=== PATIENT | male | born 1955 | race Caucasian/White ===

== ENCOUNTER 2019-09-18 08:47 | Outpatient (CLI) | payer MEDICARE, SELFPAY ==
--- NOTE | 2019-09-18 | XR_ITS ---
WS: [id number] CHEST 2 VIEWS HISTORY: COUGH, CHEST CONGESTION, SOB COMPARISON: None available. Lungs: Lung volumes are decreased. Scattered bilateral granulomata. There is also mild pulmonary josette a. No pneumonia. No pleural effusion. Cardiac size: Normal. Mediastinum/Aorta: Mild atherosclerosis aorta. Bones: Normal. XR/XR chest 2V* [id number] IMPRESSION: 1. Mild pulmonary venous congestion with no pneumonia. 2. Prior granulomatous disease.
== END 2019-09-18 08:48 | disposition home or self-care (01) ==
PROVIDERS: Family Provider Pediatrics Pediatric Allergy/Immunology; PCP Pediatrics Pediatric Allergy/Immunology; Visit Provider Nurse Practitioner
DX: Z76.89 Persons encountering health services in other specified circumstances (principal)

== ENCOUNTER → 2019-11-28 10:14 | Outpatient (BNVA) | payer MEDICARE, SELFPAY | PROVIDERS: Family Provider Pediatrics Pediatric Allergy/Immunology; PCP Pediatrics Pediatric Allergy/Immunology; Visit Provider Registered Nurse | DX: I10 Essential (primary) hypertension (principal); E78.5 Hyperlipidemia, unspecified; K21.9 Gastro-esophageal reflux disease without esophagitis; N40.0 Benign prostatic hyperplasia without lower urinary tract symptoms | CPT/HCPCS: 80053; 80061; 84153; 85025 ==

== ENCOUNTER → 2020-12-16 11:25 | Outpatient (BNVA) | payer MEDICARE, OTHER, SELFPAY | PROVIDERS: Family Provider Pediatrics Pediatric Allergy/Immunology; PCP Pediatrics Pediatric Allergy/Immunology; Visit Provider Registered Nurse | DX: I10 Essential (primary) hypertension (principal); K21.9 Gastro-esophageal reflux disease without esophagitis; E78.5 Hyperlipidemia, unspecified; E66.01 Morbid (severe) obesity due to excess calories | CPT/HCPCS: 80053; 80061; 85025 ==

== ENCOUNTER → 2021-10-06 09:57 | Outpatient (BNVA) | payer MEDICARE, OTHER, SELFPAY | PROVIDERS: Family Provider Pediatrics Pediatric Allergy/Immunology; PCP Registered Nurse; Visit Provider Registered Nurse | DX: I10 Essential (primary) hypertension (principal) | CPT/HCPCS: 80053; 80061; 85025; 88304 ==

== ENCOUNTER → 2022-11-13 15:03 | Outpatient (BNVA) | payer MEDICARE, OTHER, SELFPAY | PROVIDERS: Family Provider Pediatrics Pediatric Allergy/Immunology; PCP Registered Nurse; Visit Provider Registered Nurse | DX: E66.01 Morbid (severe) obesity due to excess calories (principal); I10 Essential (primary) hypertension; N40.0 Benign prostatic hyperplasia without lower urinary tract symptoms; G62.9 Polyneuropathy, unspecified; R73.9 Hyperglycemia, unspecified | CPT/HCPCS: 80053; 80061; 82607; 83036; 85025 ==

== ENCOUNTER 2022-11-23 06:00 | Outpatient (RCR) | payer MEDICARE, OTHER, SELFPAY | END 2022-11-26 23:59 | disposition home or self-care (01) | LOC: WPT 06:00 | PROVIDERS: Visit Provider Registered Nurse | DX: M25.512 Pain in left shoulder (principal) | CPT/HCPCS: 97110; 97161 ==

== ENCOUNTER 2022-11-27 06:00 | Outpatient (RCR) | payer MEDICARE, OTHER, SELFPAY | END 2022-12-27 23:59 | disposition home or self-care (01) | LOC: WPT 06:00 | PROVIDERS: Visit Provider Registered Nurse | DX: M25.512 Pain in left shoulder (principal); G89.29 Other chronic pain | CPT/HCPCS: 97110; 97112; 97140; 97530 ==

== ENCOUNTER 2022-12-28 06:00 | Outpatient (RCR) | payer MEDICARE, OTHER, SELFPAY | END 2023-01-26 23:59 | disposition home or self-care (01) | LOC: WPT 06:00 | PROVIDERS: Visit Provider Registered Nurse | DX: M25.512 Pain in left shoulder (principal); G89.29 Other chronic pain | CPT/HCPCS: 97110; 97112; 97530 ==

== ENCOUNTER → 2023-02-05 09:14 | Outpatient (BNVA) | payer MEDICARE, OTHER, SELFPAY | PROVIDERS: PCP Registered Nurse; Visit Provider Registered Nurse | DX: I10 Essential (primary) hypertension (principal); N40.0 Benign prostatic hyperplasia without lower urinary tract symptoms | CPT/HCPCS: 80053; 80061; 83880; 84153; 85025 ==

== ENCOUNTER 2023-02-27 12:00 | Outpatient (CLI) | payer MEDICARE, OTHER, SELFPAY ==
--- NOTE | 2023-02-27 12:15 | USCV_ITS ---
Alan Pino Age: 67 Gender: M : 1955 Exam Date: 02/27/2023 12:43 Ordering Phys: Rogelio Arriaga SENIOR ACCOUNTS PAYABLE CLERK SENIOR ACCOUNTS PAYABLE CLERK Technologist: Afia Kaminski Exam Location: [facility] [place] Indication: SOB, edema BP: 126 / 82 HR: 82 Rhythm: Sinus Technical Quality: Technically difficult study MEASUREMENTS (Male / Female) Normal Values 2D ECHO LV Diastolic Diameter PLAX 4.8 cm 4.2 - 5.9 / 3.9 - 5.3 cm LV Systolic Diameter PLAX 3.5 cm IVS Diastolic Thickness 1.6 cm 0.6 - 1.0 / 0.6 - 0.9 cm IVS Systolic Thickness 2.1 cm LVPW Diastolic Thickness 1.8 cm 0.6 - 1.0 / 0.6 - 0.9 cm LVPW Systolic Thickness 3.0 cm LVOT Diameter 2.2 cm LV Ejection Fraction 2D Teich 55.1 % LV Ejection Fraction MOD 2C 56.7 % LV Ejection Fraction 2C AL 61.6 % LA Diameter 5.4 cm LA Width 3.0 cm LA Height 7.3 cm RA Width 6.7 cm RA Height 6.4 cm Aorta at Sinotubular Diameter 2.8 cm M-MODE Aortic Annulus Diameter 3.8 cm LA Ao Ratio MM 1.5 MV E Point Septal Separation 0.5 cm DOPPLER AV Peak Velocity 101.0 cm/s LVOT Peak Velocity 68.0 cm/s AV Area Cont Eq vti 2.4 cm squared AV Area Cont Eq pk 2.6 cm squared MV Peak Velocity 106.0 cm/s MV Area PHT 5.0 cm squared Mitral E to A Ratio 4.4 MV E' Velocity 52.5 cm/s Mitral E to MV E' Ratio 8.0 Mitral E to LV E' Lateral Ratio 9.2 Mitral E to LV E' Septal Ratio 7.2 TR Peak Velocity 233.8 cm/s TR Peak Gradient 21.9 mmHg Right Atrial Pressure 5.0 mmHg Pulmonary Artery Systolic Pressu 26.9 mmHg PV Peak Velocity 68.0 cm/s RV Acceleration Time 0.1 s RV Ejection Time 0.4 s RV AcT/ET 0.4 FINDINGS Left Ventricle Normal LV size and ejection fraction. Possibly no gross wall motion normalities. (Echo contrast - Optison was used to delineate the endocardium and to estimate the LV ejection fraction) Right Ventricle Right Atrium Left Atrium Mitral Valve Aortic Valve Tricuspid Valve Mild tricuspid valve regurgitation. Pulmonic Valve Pericardium Aorta IVC CONCLUSIONS Technically very difficult study Normal LV size andejection fraction of 62% No gross wall motion abnormalities noted Other cardiac chambers could not be visualized (Echo contrast - Optison was used to delineate the endocardium and to estimate the LV ejection fraction) Dr Daniel Lawson MD [facility] (Electronically Signed) Final Date: 27 February 2023 19:19 S
[2023-02-27] MEDS: perflutren protein-a microsphr 0.22 mg/mL SDV 3 mL IV (13:29)
== END 2023-02-27 12:01 | disposition home or self-care (01) ==
LOC: RAD 12:03
PROVIDERS: PCP Registered Nurse; Visit Provider Registered Nurse
DX: I50.9 Heart failure, unspecified (principal)
CPT/HCPCS: C8929; Q9956

== ENCOUNTER 2023-03-21 08:49 | Outpatient (RCR) | payer MEDICARE, OTHER, SELFPAY ==
[2023-03-21 10:06] VITALS: BP 138/95; PULSE 82; RESP 18; TEMP 36.7; O2SAT 94
== END 2023-03-29 23:59 | disposition home or self-care (01) ==
LOC: ONCMED 08:49
PROVIDERS: PCP Registered Nurse; Visit Provider Registered Nurse
DX: D75.1 Secondary polycythemia (principal); G47.30 Sleep apnea, unspecified; Z87.891 Personal history of nicotine dependence
CPT/HCPCS: 99195; 99203

== ENCOUNTER 2023-03-30 12:24 | Outpatient (CLI) | payer MEDICARE, OTHER, SELFPAY ==
--- NOTE | 2023-03-30 12:31 | USCV_ITS ---
OdetteAlan Age: 67 Gender: M : 1955 Exam Date: 03/30/2023 12:34 Ordering Phys: Mars De La Cruz DO Technologist: Noel Singh [place] [facility] [place]: [place] RIGHT LEFT Brachial 166.00 mmHg Brachial 169.00 mmHg Pressure (mmHg) Waveform Pressure (mmHg) Waveform 166.00 FONDANT COOKER 174.00 161.00 DPA 162.00 0.98 Ankle/Brachial Index 1.03 202.00 Pre-Exercise Toe Pressure 220.00 1.20 Pre-Exercise Toe/Brachial Index 1.30 FINDINGS Resting JASWINDER of 0.98 on the right and 1.03 on the left Resting TBI of 1.2 on the right and 1.3 on the left CONCLUSIONS Normal resting ABIs and TBIs bilaterally. No significant arterial obstruction, based on the above findings. Dr Daniel Lawson MD [facility] (Electronically Signed) Final Date: 03 April 2023 09:04 S
== END 2023-03-30 12:25 | disposition home or self-care (01) ==
LOC: RAD 12:26
PROVIDERS: PCP Electrodiagnostic Medicine; Visit Provider Electrodiagnostic Medicine
DX: I87.2 Venous insufficiency (chronic) (peripheral) (principal)
CPT/HCPCS: 93922

== ENCOUNTER 2023-04-10 13:30 | Outpatient (CLI) | payer MEDICARE, OTHER, SELFPAY | END 2023-04-10 13:31 | disposition home or self-care (01) | LOC: SLEEP 04-11 09:02 | PROVIDERS: PCP Registered Nurse; Visit Provider Internal Medicine Medical Oncology | DX: D75.1 Secondary polycythemia (principal) | CPT/HCPCS: 94762 ==

== ENCOUNTER 2023-04-20 09:24 | Oncology outpatient (recurring) (ONCR) | payer MEDICARE, OTHER, SELFPAY ==
[2023-04-20 09:46] LABS: Basophils % 0.5 %; Eosinophils # 0.1 10^3/uL (0.0-0.8); Eosinophils % 0.8 %; Hematocrit 52.7 % (37-53); Lymphocytes % 26.9 %; Mean Corpuscular HGB Conc 32.8 g/dL (30-55); Mean Corpuscular Hemoglobin 30.1 pg (27-33); Mean Corpuscular Volume 91.7 fl (82-101); Mean Platelet Volume 10.7 fL (7.4-10.4); Monocytes # 0.8 10^3/uL (0.2-0.9); Monocytes % 10.7 %; Neutrophils # 4.49 10^3/uL (1.8-7.7); Neutrophils % 60.8 %; Nucleated Red Blood Cells % 0 %; Platelet Count 175 10^3/cmm (157-399); Red Blood Count 5.75 10^6/uL (3.85-5.65); Red Cell Distribution Width 12.8 % (12.1-15.1); White Blood Count 7.39 10^3/uL (3.29-11.43)
== END 2023-04-28 23:59 | disposition home or self-care (01) ==
PROVIDERS: Internal Medicine Medical Oncology; PCP Registered Nurse; Visit Provider Internal Medicine Medical Oncology
DX: D75.1 Secondary polycythemia (principal)
CPT/HCPCS: 36415; 85025; 99213

== ENCOUNTER 2023-05-23 09:30 | Oncology outpatient (recurring) (ONCR) | payer MEDICARE, OTHER, SELFPAY ==
[2023-05-21 13:47] VITALS: BP 150/90; PULSE 93; RESP 16; TEMP 36.7; O2SAT 94
[2023-05-21 13:58] LABS: Basophils # 0.1 10^3/uL (0.0-0.1); Basophils % 0.6 %; Eosinophils # 0.1 10^3/uL (0.0-0.8); Eosinophils % 0.7 %; Hematocrit 52.6 % (37-53); Lymphocytes # 2.2 10^3/uL (0.8-4.8); Lymphocytes % 24.8 %; Mean Corpuscular HGB Conc 33.1 g/dL (30-55); Mean Corpuscular Hemoglobin 29.9 pg (27-33); Mean Corpuscular Volume 90.4 fl (82-101); Monocytes # 0.8 10^3/uL (0.2-0.9); Monocytes % 8.7 %; Neutrophils # 5.66 10^3/uL (1.8-7.7); Nucleated Red Blood Cells % 0 %; Platelet Count 178 10^3/cmm (157-399); Red Blood Count 5.82 10^6/uL (3.85-5.65); Red Cell Distribution Width 12.5 % (12.1-15.1); White Blood Count 8.71 10^3/uL (3.29-11.43)
[2023-05-21 14:22] LABS: Alanine Aminotransferase 19 U/L (0-41); Albumin Level 4.3 g/dL (3.5-5.2); Alkaline Phosphatase 51 U/L (40-130); Anion Gap 11.8 (5-19); Aspartate Amino Transferase 15 U/L (0-40); Blood Urea Nitrogen 26 mg/dL (8-23); Calcium 9.4 mg/dL (8.5-10.5); Carbon Dioxide 26 mmol/L (22-29); Chloride 106 mmol/L (98-107); Glomerular Filtration Rate 95.8 mL/min (90-130); Glucose 103 mg/dL (65-115); Osmolality Calculated 295 mOsm/kg (285-295); Potassium 3.8 mmol/L (3.5-5.1); Sodium 140 mmol/L (136-145); Total Bilirubin 0.3 mg/dL (0.15-1.2); Total Protein 6.3 g/dL (6.6-8.7)
[2023-05-23 11:00] VITALS: BP 129/84; PULSE 77; RESP 16; TEMP 36.7; O2SAT 97
[2023-05-23 11:35] VITALS: BP 143/83; PULSE 77; RESP 16; TEMP 36.1; O2SAT 97
== END 2023-05-29 23:59 | disposition home or self-care (01) ==
PROVIDERS: Nurse Practitioner Family; PCP Registered Nurse; Visit Provider Internal Medicine Medical Oncology
DX: D75.1 Secondary polycythemia (principal); Z86.006 Personal history of melanoma in-situ; L57.0 Actinic keratosis; L81.4 Other melanin hyperpigmentation; L57.8 Other skin changes due to chronic exposure to nonionizing radiation
CPT/HCPCS: 17004; 36415; 80053; 85025; 99195; 99214

== ENCOUNTER 2023-06-27 11:30 | Outpatient (CLI) | payer MEDICARE, OTHER, SELFPAY | END 2023-06-27 11:31 | disposition home or self-care (01) | LOC: SLEEP 06-28 10:15 | PROVIDERS: PCP Registered Nurse; Visit Provider Nurse Practitioner Family | DX: G47.33 Obstructive sleep apnea (adult) (pediatric) (principal); G47.36 Sleep related hypoventilation in conditions classified elsewhere; D75.1 Secondary polycythemia | CPT/HCPCS: G0399 ==

== ENCOUNTER 2023-07-05 13:26 | Oncology outpatient (recurring) (ONCR) | payer MEDICARE, OTHER, SELFPAY ==
[2023-07-05 13:45] VITALS: BP 129/84; PULSE 84; RESP 16; TEMP 36.8; O2SAT 96
[2023-07-05 13:53] LABS: Basophils % 0.4 %; Eosinophils # 0.1 10^3/uL (0.0-0.8); Eosinophils % 0.7 %; Hematocrit 53.5 % (37-53); Lymphocytes # 1.9 10^3/uL (0.8-4.8); Lymphocytes % 20.8 %; Mean Corpuscular HGB Conc 33.3 g/dL (30-55); Mean Corpuscular Hemoglobin 29.2 pg (27-33); Mean Corpuscular Volume 87.7 fl (82-101); Mean Platelet Volume 11.1 fL (7.4-10.4); Monocytes # 0.8 10^3/uL (0.2-0.9); Monocytes % 8.9 %; Neutrophils # 6.34 10^3/uL (1.8-7.7); Neutrophils % 68.9 %; Nucleated Red Blood Cells % 0 %; Platelet Count 192 10^3/cmm (157-399); White Blood Count 9.21 10^3/uL (3.29-11.43)
[2023-07-05 14:17] LABS: Alanine Aminotransferase 18 U/L (0-41); Albumin Level 4.2 g/dL (3.5-5.2); Alkaline Phosphatase 55 U/L (40-130); Anion Gap 14.4 (5-19); Aspartate Amino Transferase 16 U/L (0-40); Blood Urea Nitrogen 27 mg/dL (8-23); Calcium 9.8 mg/dL (8.5-10.5); Carbon Dioxide 26 mmol/L (22-29); Chloride 102 mmol/L (98-107); Globulin 2.5 g/dL (1.3-4.6); Glomerular Filtration Rate 74.1 mL/min (90-130); Glucose 106 mg/dL (65-115); Osmolality Calculated 294 mOsm/kg (285-295); Potassium 3.4 mmol/L (3.5-5.1); Sodium 139 mmol/L (136-145); Total Bilirubin 0.5 mg/dL (0.15-1.2); Total Protein 6.7 g/dL (6.6-8.7)
== END 2023-07-29 23:59 | disposition home or self-care (01) ==
PROVIDERS: Internal Medicine; PCP Registered Nurse; Visit Provider Internal Medicine Medical Oncology
DX: D75.1 Secondary polycythemia (principal); Z87.891 Personal history of nicotine dependence; Z79.899 Other long term (current) drug therapy
CPT/HCPCS: 36415; 80053; 85025; 99195; 99214

== ENCOUNTER → 2023-07-26 10:27 | Outpatient (BNVA) | payer MEDICARE, OTHER, SELFPAY | PROVIDERS: PCP Registered Nurse; Referring Provider Internal Medicine; Visit Provider Internal Medicine Pulmonary Disease | DX: G47.33 Obstructive sleep apnea (adult) (pediatric) (principal); Z87.891 Personal history of nicotine dependence | CPT/HCPCS: 99204 ==

== ENCOUNTER 2023-08-02 10:17 | Oncology outpatient (recurring) (ONCR) | payer MEDICARE, OTHER, SELFPAY ==
[2023-08-02 11:05] VITALS: BP 140/86; PULSE 97; RESP 16; TEMP 36.4; O2SAT 96
[2023-08-02 11:19] LABS: Basophils % 0.6 %; Eosinophils # 0.1 10^3/uL (0.0-0.8); Hematocrit 51.3 % (37-53); Lymphocytes # 2.1 10^3/uL (0.8-4.8); Lymphocytes % 30.9 %; Mean Corpuscular HGB Conc 33.1 g/dL (30-55); Mean Corpuscular Hemoglobin 29.3 pg (27-33); Mean Corpuscular Volume 88.3 fl (82-101); Mean Platelet Volume 10.6 fL (7.4-10.4); Monocytes # 0.7 10^3/uL (0.2-0.9); Monocytes % 10.7 %; Neutrophils # 3.79 10^3/uL (1.8-7.7); Neutrophils % 56.4 %; Nucleated Red Blood Cells % 0 %; Platelet Count 181 10^3/cmm (157-399); Red Blood Count 5.81 10^6/uL (3.85-5.65); Red Cell Distribution Width 13.2 % (12.1-15.1); White Blood Count 6.73 10^3/uL (3.29-11.43)
[2023-08-02 11:41] LABS: Alanine Aminotransferase 16 U/L (0-41); Albumin Level 4.1 g/dL (3.5-5.2); Alkaline Phosphatase 51 U/L (40-130); Anion Gap 14.1 (5-19); Aspartate Amino Transferase 13 U/L (0-40); Blood Urea Nitrogen 22 mg/dL (8-23); Calcium 9.3 mg/dL (8.5-10.5); Carbon Dioxide 27 mmol/L (22-29); Chloride 102 mmol/L (98-107); Globulin 2.6 g/dL (1.3-4.6); Glomerular Filtration Rate 111.8 mL/min (90-130); Glucose 94 mg/dL (65-115); Osmolality Calculated 291 mOsm/kg (285-295); Potassium 4.1 mmol/L (3.5-5.1); Sodium 139 mmol/L (136-145); Total Bilirubin 0.5 mg/dL (0.15-1.2); Total Protein 6.7 g/dL (6.6-8.7)
[2023-08-02 13:05] VITALS: BP 136/97; PULSE 85; RESP 18; TEMP 36.4; O2SAT 99
== END 2023-08-29 23:59 | disposition home or self-care (01) ==
PROVIDERS: Internal Medicine; PCP Registered Nurse; Visit Provider Internal Medicine Medical Oncology
DX: D75.1 Secondary polycythemia (principal); Z87.891 Personal history of nicotine dependence; Z79.899 Other long term (current) drug therapy
CPT/HCPCS: 36415; 80053; 85025; 99195; 99213

== ENCOUNTER 2023-09-27 11:00 | Oncology outpatient (recurring) (ONCR) | payer MEDICARE, OTHER, SELFPAY ==
[2023-08-30 08:49] LABS: Basophils % 0.5 %; Eosinophils % 0.6 %; Lymphocytes # 1.5 10^3/uL (0.8-4.8); Lymphocytes % 23.2 %; Mean Corpuscular Hemoglobin 29.1 pg (27-33); Mean Platelet Volume 10.7 fL (7.4-10.4); Monocytes # 0.7 10^3/uL (0.2-0.9); Monocytes % 11.2 %; Neutrophils # 4.07 10^3/uL (1.8-7.7); Neutrophils % 64.3 %; Nucleated Red Blood Cells % 0 %; Platelet Count 187 10^3/cmm (157-399); Red Blood Count 6.02 10^6/uL (3.85-5.65); Red Cell Distribution Width 12.9 % (12.1-15.1); White Blood Count 6.33 10^3/uL (3.29-11.43)
[2023-08-30 09:08] LABS: Alanine Aminotransferase 18 U/L (0-41); Albumin Level 4.1 g/dL (3.5-5.2); Alkaline Phosphatase 56 U/L (40-130); Blood Urea Nitrogen 22 mg/dL (8-23); Calcium 9.8 mg/dL (8.5-10.5); Carbon Dioxide 29 mmol/L (22-29); Chloride 99 mmol/L (98-107); Globulin 2.7 g/dL (1.3-4.6); Glomerular Filtration Rate 111.5 mL/min (90-130); Glucose 102 mg/dL (65-115); Osmolality Calculated 286 mOsm/kg (285-295); Sodium 136 mmol/L (136-145); Total Bilirubin 0.5 mg/dL (0.15-1.2); Total Protein 6.8 g/dL (6.6-8.7)
[2023-08-30 09:27] LABS: Anion Gap 12.4 (5-19); Aspartate Amino Transferase 20 U/L (0-40); Potassium 4.4 mmol/L (3.5-5.1)
[2023-08-30 11:35] VITALS: BP 134/78; PULSE 74; RESP 18; TEMP 36.6; O2SAT 98
[2023-09-27 10:48] LABS: Basophils % 0.5 %; Eosinophils # 0.1 10^3/uL (0.0-0.8); Hematocrit 51.9 % (37-53); Lymphocytes # 1.7 10^3/uL (0.8-4.8); Lymphocytes % 26.8 %; Mean Corpuscular HGB Conc 32.6 g/dL (30-55); Mean Corpuscular Hemoglobin 29.3 pg (27-33); Mean Corpuscular Volume 90.1 fl (82-101); Mean Platelet Volume 10.8 fL (7.4-10.4); Monocytes # 0.6 10^3/uL (0.2-0.9); Monocytes % 9.4 %; Neutrophils # 3.89 10^3/uL (1.8-7.7); Nucleated Red Blood Cells % 0 %; Platelet Count 184 10^3/cmm (157-399); Red Blood Count 5.76 10^6/uL (3.85-5.65); White Blood Count 6.27 10^3/uL (3.29-11.43)
[2023-09-27 14:40] VITALS: BP 120/78; PULSE 74; RESP 18; TEMP 36.6; O2SAT 98
== END 2023-09-27 23:59 | disposition home or self-care (01) ==
PROVIDERS: Internal Medicine; Nurse Practitioner Family; PCP Registered Nurse; Visit Provider Internal Medicine Medical Oncology
DX: Z53.9 Procedure and treatment not carried out, unspecified reason (principal); D75.1 Secondary polycythemia; Z79.899 Other long term (current) drug therapy; Z87.891 Personal history of nicotine dependence; G47.33 Obstructive sleep apnea (adult) (pediatric)
CPT/HCPCS: 36415; 80053; 85025; 99195; 99214

== ENCOUNTER → 2023-10-22 13:47 | Outpatient (BNVA) | payer MEDICARE, OTHER, SELFPAY | PROVIDERS: PCP Registered Nurse; Visit Provider Nurse Practitioner Family | DX: L57.0 Actinic keratosis (principal); L81.4 Other melanin hyperpigmentation; L57.8 Other skin changes due to chronic exposure to nonionizing radiation; Z86.006 Personal history of melanoma in-situ; Z85.828 Personal history of other malignant neoplasm of skin | CPT/HCPCS: 17004; 99213 ==

== ENCOUNTER → 2023-10-25 07:26 | Outpatient (BNVA) | payer MEDICARE, OTHER, SELFPAY | PROVIDERS: PCP Registered Nurse; Visit Provider Specialist | DX: M79.2 Neuralgia and neuritis, unspecified (principal); R20.0 Anesthesia of skin; R20.2 Paresthesia of skin | CPT/HCPCS: 95908; 95910 ==

== ENCOUNTER 2023-11-02 09:18 | Oncology outpatient (recurring) (ONCR) | payer MEDICARE, OTHER, SELFPAY ==
[2023-11-02 10:06] LABS: Basophils % 0.4 %; Eosinophils % 0.4 %; Hematocrit 49.4 % (37-53); Lymphocytes # 1.4 10^3/uL (0.8-4.8); Lymphocytes % 21.1 %; Mean Corpuscular HGB Conc 32.4 g/dL (30-55); Mean Corpuscular Hemoglobin 28.9 pg (27-33); Mean Corpuscular Volume 89.2 fl (82-101); Mean Platelet Volume 10.7 fL (7.4-10.4); Monocytes # 0.7 10^3/uL (0.2-0.9); Monocytes % 10.4 %; Neutrophils % 67.4 %; Nucleated Red Blood Cells % 0 %; Platelet Count 168 10^3/cmm (157-399); Red Blood Count 5.54 10^6/uL (3.85-5.65); Red Cell Distribution Width 12.7 % (12.1-15.1); White Blood Count 6.83 10^3/uL (3.29-11.43)
== END 2023-11-27 23:59 | disposition home or self-care (01) ==
PROVIDERS: Nurse Practitioner Family; PCP Registered Nurse; Visit Provider Internal Medicine Medical Oncology
DX: D75.1 Secondary polycythemia (principal)
CPT/HCPCS: 36415; 85025

== ENCOUNTER 2023-12-06 11:01 | Oncology outpatient (recurring) (ONCR) | payer MEDICARE, OTHER, SELFPAY ==
[2023-12-06 11:22] LABS: Basophils % 0.4 %; Eosinophils # 0.1 10^3/uL (0.0-0.8); Eosinophils % 0.6 %; Hematocrit 51.3 % (37-53); Lymphocytes % 25.3 %; Mean Corpuscular HGB Conc 32.7 g/dL (30-55); Mean Corpuscular Hemoglobin 28.4 pg (27-33); Mean Corpuscular Volume 86.8 fl (82-101); Mean Platelet Volume 11.1 fL (7.4-10.4); Monocytes # 0.7 10^3/uL (0.2-0.9); Monocytes % 9.2 %; Neutrophils # 4.94 10^3/uL (1.8-7.7); Neutrophils % 64.2 %; Nucleated Red Blood Cells % 0 %; Platelet Count 189 10^3/cmm (157-399); Red Blood Count 5.91 10^6/uL (3.85-5.65); Red Cell Distribution Width 13.2 % (12.1-15.1)
[2023-12-06 11:45] LABS: Alanine Aminotransferase 16 U/L (0-41); Albumin Level 4.3 g/dL (3.5-5.2); Alkaline Phosphatase 66 U/L (40-130); Anion Gap 15.1 (5-19); Aspartate Amino Transferase 16 U/L (0-40); Blood Urea Nitrogen 17 mg/dL (8-23); Calcium 9.3 mg/dL (8.5-10.5); Carbon Dioxide 27 mmol/L (22-29); Chloride 104 mmol/L (98-107); Globulin 2.5 g/dL (1.3-4.6); Glomerular Filtration Rate 133.2 mL/min (90-130); Glucose 97 mg/dL (65-115); Osmolality Calculated 295 mOsm/kg (285-295); Potassium 4.1 mmol/L (3.5-5.1); Sodium 142 mmol/L (136-145); Total Bilirubin 0.6 mg/dL (0.15-1.2); Total Protein 6.8 g/dL (6.6-8.7)
== END 2023-12-28 23:59 | disposition home or self-care (01) ==
PROVIDERS: Nurse Practitioner Family; PCP Nurse Practitioner Family; Visit Provider Internal Medicine Medical Oncology
DX: D75.1 Secondary polycythemia (principal); Z87.891 Personal history of nicotine dependence; Z79.899 Other long term (current) drug therapy
CPT/HCPCS: 36415; 80053; 85025; 99195; 99214

== ENCOUNTER → 2024-01-22 11:20 | Outpatient (BNVA) | payer MEDICARE, OTHER, SELFPAY | PROVIDERS: PCP Nurse Practitioner Family; Visit Provider Nurse Practitioner Family | DX: L81.4 Other melanin hyperpigmentation (principal); L57.8 Other skin changes due to chronic exposure to nonionizing radiation; L57.0 Actinic keratosis; Z86.006 Personal history of melanoma in-situ; Z85.828 Personal history of other malignant neoplasm of skin | CPT/HCPCS: 17004; 99214 ==

== ENCOUNTER 2024-01-30 12:57 | Oncology outpatient (recurring) (ONCR) | payer MEDICARE, OTHER, SELFPAY ==
[2024-01-30 13:29] LABS: Basophils % 0.4 %; Eosinophils % 0.5 %; Hematocrit 50.3 % (37-53); Lymphocytes # 2.2 10^3/uL (0.8-4.8); Mean Corpuscular Hemoglobin 26.7 pg (27-33); Monocytes # 0.9 10^3/uL (0.2-0.9); Monocytes % 11.7 %; Neutrophils # 4.59 10^3/uL (1.8-7.7); Nucleated Red Blood Cells % 0 %; Platelet Count 176 10^3/cmm (157-399); Red Blood Count 5.85 10^6/uL (3.85-5.65); Red Cell Distribution Width 13.8 % (12.1-15.1); White Blood Count 7.78 10^3/uL (3.29-11.43)
== END 2024-02-27 23:59 | disposition home or self-care (01) ==
LOC: ONCMED 12:57
PROVIDERS: Nurse Practitioner Family; PCP Nurse Practitioner Family; Visit Provider Internal Medicine Medical Oncology
DX: D75.1 Secondary polycythemia (principal)
CPT/HCPCS: 36415; 85025

== ENCOUNTER 2024-04-07 09:27 | Oncology outpatient (recurring) (ONCR) | payer MEDICARE, OTHER, SELFPAY ==
[2024-04-07 10:20] LABS: Basophils % 0.5 %; Eosinophils % 0.5 %; Hematocrit 50.8 % (37-53); Lymphocytes # 1.6 10^3/uL (0.8-4.8); Lymphocytes % 27.3 %; Mean Corpuscular HGB Conc 31.9 g/dL (30-55); Mean Corpuscular Volume 84.8 fl (82-101); Mean Platelet Volume 10.7 fL (7.4-10.4); Monocytes # 0.6 10^3/uL (0.2-0.9); Monocytes % 10.6 %; Neutrophils % 60.8 %; Nucleated Red Blood Cells % 0 %; Platelet Count 193 10^3/cmm (157-399); Red Blood Count 5.99 10^6/uL (3.85-5.65); Red Cell Distribution Width 15.7 % (12.1-15.1); White Blood Count 5.93 10^3/uL (3.29-11.43)
[2024-04-07 10:39] LABS: Alanine Aminotransferase 23 U/L (0-41); Albumin Level 4.1 g/dL (3.5-5.2); Alkaline Phosphatase 75 U/L (40-130); Anion Gap 13.4 (5-19); Aspartate Amino Transferase 22 U/L (0-40); Blood Urea Nitrogen 18 mg/dL (8-23); Calcium 9.2 mg/dL (8.5-10.5); Carbon Dioxide 28 mmol/L (22-29); Chloride 104 mmol/L (98-107); Globulin 2.4 g/dL (1.3-4.6); Glomerular Filtration Rate 111.5 mL/min (90-130); Glucose 97 mg/dL (65-115); Osmolality Calculated 294 mOsm/kg (285-295); Potassium 4.4 mmol/L (3.5-5.1); Sodium 141 mmol/L (136-145); Total Bilirubin 0.6 mg/dL (0.15-1.2); Total Protein 6.5 g/dL (6.6-8.7)
== END 2024-04-28 23:59 | disposition home or self-care (01) ==
PROVIDERS: Nurse Practitioner Family; PCP Nurse Practitioner Family; Visit Provider Internal Medicine Medical Oncology
DX: D75.1 Secondary polycythemia (principal); Z87.891 Personal history of nicotine dependence; Z79.899 Other long term (current) drug therapy
CPT/HCPCS: 36415; 80053; 85025; 99214

== ENCOUNTER → 2024-04-16 15:19 | Outpatient (BNVA) | payer MEDICARE, OTHER, SELFPAY | PROVIDERS: PCP Nurse Practitioner Family; Visit Provider Podiatrist Foot & Ankle Surgery | DX: G62.9 Polyneuropathy, unspecified (principal); R60.9 Edema, unspecified | CPT/HCPCS: 99203 ==

== ENCOUNTER 2024-05-13 15:21 | Outpatient (CLI) | payer MEDICARE, OTHER, SELFPAY | END 2024-05-13 15:22 | disposition home or self-care (01) | LOC: SPT 15:22 | PROVIDERS: PCP Nurse Practitioner Family; Visit Provider Podiatrist Foot & Ankle Surgery | DX: Z46.89 Encounter for fitting and adjustment of other specified devices (principal); R60.0 Localized edema; M79.2 Neuralgia and neuritis, unspecified | CPT/HCPCS: 97760; L3030 ==

== ENCOUNTER → 2024-05-22 14:44 | Outpatient (BNVA) | payer MEDICARE, OTHER, SELFPAY | PROVIDERS: PCP Nurse Practitioner Family; Visit Provider Nurse Practitioner Family | DX: L81.4 Other melanin hyperpigmentation (principal); L57.8 Other skin changes due to chronic exposure to nonionizing radiation; L57.0 Actinic keratosis; Z86.006 Personal history of melanoma in-situ; Z85.828 Personal history of other malignant neoplasm of skin | CPT/HCPCS: 17004; 99213 ==

== ENCOUNTER 2024-06-10 11:01 | Oncology outpatient (recurring) (ONCR) | payer MEDICARE, OTHER, SELFPAY ==
[2024-06-10 11:21] LABS: Basophils # 0.1 10^3/uL (0.0-0.1); Basophils % 0.7 %; Eosinophils % 0.6 %; Hematocrit 52.3 % (37-53); Lymphocytes # 1.7 10^3/uL (0.8-4.8); Lymphocytes % 23.7 %; Mean Corpuscular HGB Conc 32.1 g/dL (30-55); Mean Corpuscular Hemoglobin 27.4 pg (27-33); Mean Corpuscular Volume 85.3 fl (82-101); Monocytes # 0.7 10^3/uL (0.2-0.9); Monocytes % 9.1 %; Neutrophils # 4.72 10^3/uL (1.8-7.7); Neutrophils % 65.6 %; Nucleated Red Blood Cells % 0 %; Platelet Count 172 10^3/cmm (157-399); Red Blood Count 6.13 10^6/uL (3.85-5.65); Red Cell Distribution Width 14.5 % (12.1-15.1); White Blood Count 7.18 10^3/uL (3.29-11.43)
[2024-06-10 11:41] LABS: Alanine Aminotransferase 14 U/L (0-41); Albumin Level 4.1 g/dL (3.5-5.2); Alkaline Phosphatase 63 U/L (40-130); Anion Gap 12.1 (5-19); Aspartate Amino Transferase 18 U/L (0-40); Blood Urea Nitrogen 23 mg/dL (8-23); Calcium 8.8 mg/dL (8.5-10.5); Carbon Dioxide 31 mmol/L (22-29); Chloride 102 mmol/L (98-107); Globulin 2.4 g/dL (1.3-4.6); Glomerular Filtration Rate 95.6 mL/min (90-130); Glucose 97 mg/dL (65-115); Osmolality Calculated 296 mOsm/kg (285-295); Potassium 4.1 mmol/L (3.5-5.1); Sodium 141 mmol/L (136-145); Total Bilirubin 0.5 mg/dL (0.15-1.2); Total Protein 6.5 g/dL (6.6-8.7)
[2024-06-10 13:21] VITALS: BP 167/96
--- NOTE | 2024-06-10 13:22 | PC.NURSE ---
Pts BP is 167/96 after removing 500mL blood from pt. Notified Ceci Morales NP, states pt should follow up with primary care doctor or go to urgent care today. Educated pt on risk of heart attack and stroke possibilities. Pt states he will call his primary care doctor, if he can't get in by tomorrow, he will go to urgent care today.
== END 2024-06-28 23:59 | disposition home or self-care (01) ==
PROVIDERS: Nurse Practitioner Family; PCP Nurse Practitioner Family; Visit Provider Internal Medicine Medical Oncology
DX: D75.1 Secondary polycythemia (principal); Z87.891 Personal history of nicotine dependence; Z79.899 Other long term (current) drug therapy
CPT/HCPCS: 36415; 80053; 85025; 99195; 99214

== ENCOUNTER → 2024-07-31 13:45 | Outpatient (BNVA) | payer MEDICARE, OTHER, SELFPAY | PROVIDERS: PCP Nurse Practitioner Family; Visit Provider Nurse Practitioner Family | DX: L57.8 Other skin changes due to chronic exposure to nonionizing radiation (principal); L81.4 Other melanin hyperpigmentation; D22.61 Melanocytic nevi of right upper limb, including shoulder; Z86.006 Personal history of melanoma in-situ; Z08 Encounter for follow-up examination after completed treatment for malignant neoplasm; Z85.828 Personal history of other malignant neoplasm of skin; L57.0 Actinic keratosis | CPT/HCPCS: 17004; 99214 ==

== ENCOUNTER 2024-08-12 12:36 | Oncology outpatient (recurring) (ONCR) | payer MEDICARE, OTHER, SELFPAY ==
[2024-08-12 13:00] LABS: Basophils % 0.5 %; Eosinophils # 0.1 10^3/uL (0.0-0.8); Eosinophils % 0.6 %; Hematocrit 53.2 % (37-53); Lymphocytes # 2.3 10^3/uL (0.8-4.8); Lymphocytes % 29.4 %; Mean Corpuscular HGB Conc 32.1 g/dL (30-55); Mean Corpuscular Hemoglobin 27.3 pg (27-33); Mean Platelet Volume 10.5 fL (7.4-10.4); Monocytes # 0.8 10^3/uL (0.2-0.9); Monocytes % 10.7 %; Neutrophils # 4.52 10^3/uL (1.8-7.7); Neutrophils % 58.5 %; Nucleated Red Blood Cells % 0 %; Platelet Count 228 10^3/cmm (157-399); Red Blood Count 6.26 10^6/uL (3.85-5.65); Red Cell Distribution Width 13.9 % (12.1-15.1); White Blood Count 7.73 10^3/uL (3.29-11.43)
[2024-08-12 13:14] LABS: Alanine Aminotransferase 12 U/L (0-41); Alkaline Phosphatase 61 U/L (40-130); Blood Urea Nitrogen 21 mg/dL (8-23); Calcium 9.4 mg/dL (8.5-10.5); Carbon Dioxide 30 mmol/L (22-29); Chloride 100 mmol/L (98-107); Globulin 2.6 g/dL (1.3-4.6); Glomerular Filtration Rate 133.2 mL/min (90-130); Glucose 93 mg/dL (65-115); Osmolality Calculated 285 mOsm/kg (285-295); Sodium 136 mmol/L (136-145); Total Bilirubin 0.4 mg/dL (0.15-1.2); Total Protein 6.6 g/dL (6.6-8.7)
[2024-08-12 13:18] LABS: Anion Gap 10.2 (5-19); Aspartate Amino Transferase 15 U/L (0-40); Potassium 4.2 mmol/L (3.5-5.1)
[2024-08-12 14:12] VITALS: BP 148/89; PULSE 69; RESP 17; TEMP 36.6; O2SAT 96
== END 2024-08-29 23:59 | disposition home or self-care (01) ==
PROVIDERS: Nurse Practitioner Family; PCP Nurse Practitioner Family; Visit Provider Internal Medicine Medical Oncology
DX: D75.1 Secondary polycythemia (principal); Z87.891 Personal history of nicotine dependence; Z79.899 Other long term (current) drug therapy
CPT/HCPCS: 36415; 80053; 85025; 99195; 99214

== ENCOUNTER → 2024-08-20 13:10 | Outpatient (BNVA) | payer MEDICARE, OTHER, SELFPAY | PROVIDERS: PCP Nurse Practitioner Family; Visit Provider Nurse Practitioner Family | DX: L57.8 Other skin changes due to chronic exposure to nonionizing radiation (principal); L81.4 Other melanin hyperpigmentation; Z86.006 Personal history of melanoma in-situ; Z08 Encounter for follow-up examination after completed treatment for malignant neoplasm; Z85.828 Personal history of other malignant neoplasm of skin; L57.0 Actinic keratosis; D48.5 Neoplasm of uncertain behavior of skin | CPT/HCPCS: 11102; 17004; 99213 ==

== ENCOUNTER → 2024-09-24 11:25 | Outpatient (BNVA) | payer MEDICARE, OTHER, SELFPAY | PROVIDERS: PCP Nurse Practitioner Family; Visit Provider Dermatology | DX: L57.0 Actinic keratosis (principal); D04.39 Carcinoma in situ of skin of other parts of face | CPT/HCPCS: 17280; 99214 ==

== ENCOUNTER → 2024-11-20 13:07 | Outpatient (BNVA) | payer MEDICARE, OTHER, SELFPAY | PROVIDERS: PCP Nurse Practitioner Family; Visit Provider Nurse Practitioner Family | DX: L57.8 Other skin changes due to chronic exposure to nonionizing radiation (principal); L81.4 Other melanin hyperpigmentation; D22.39 Melanocytic nevi of other parts of face; Z86.006 Personal history of melanoma in-situ; Z08 Encounter for follow-up examination after completed treatment for malignant neoplasm; Z85.828 Personal history of other malignant neoplasm of skin; L57.0 Actinic keratosis | CPT/HCPCS: 17004; 99213 ==

== ENCOUNTER 2024-12-16 11:50 | Oncology outpatient (recurring) (ONCR) | payer MEDICARE, OTHER, SELFPAY ==
[2024-12-16 12:29] LABS: Basophils % 0.4 %; Eosinophils % 0.4 %; Hematocrit 52.6 % (37-53); Lymphocytes # 1.9 10^3/uL (0.8-4.8); Mean Corpuscular HGB Conc 32.5 g/dL (30-55); Mean Corpuscular Hemoglobin 28.5 pg (27-33); Mean Corpuscular Volume 87.7 fl (82-101); Mean Platelet Volume 10.8 fL (7.4-10.4); Monocytes # 0.8 10^3/uL (0.2-0.9); Monocytes % 10.5 %; Neutrophils % 61.4 %; Nucleated Red Blood Cells % 0 %; Platelet Count 166 10^3/cmm (157-399); Red Cell Distribution Width 14.3 % (12.1-15.1); White Blood Count 7.16 10^3/uL (3.29-11.43)
== END 2024-12-27 23:59 | disposition home or self-care (01) ==
LOC: ONCMED 11:51
PROVIDERS: PCP Nurse Practitioner Family; Visit Provider Internal Medicine Medical Oncology
DX: D75.1 Secondary polycythemia (principal); Z79.899 Other long term (current) drug therapy
CPT/HCPCS: 36415; 85025; 99195

== ENCOUNTER → 2024-12-17 08:48 | Outpatient (BNVA) | payer MEDICARE, OTHER, SELFPAY | PROVIDERS: PCP Nurse Practitioner Family; Visit Provider Podiatrist Foot & Ankle Surgery | DX: G62.9 Polyneuropathy, unspecified (principal); R60.9 Edema, unspecified; M79.671 Pain in right foot; M79.672 Pain in left foot | CPT/HCPCS: 99213 ==

== ENCOUNTER 2025-02-16 12:01 | Oncology outpatient (recurring) (ONCR) | payer MEDICARE, OTHER, SELFPAY ==
[2025-02-16 12:30] LABS: Hematocrit 52.4 % (37-53); Hemoglobin 16.70 g/dL (11.27-16.99); Mean Corpuscular HGB Conc 31.9 g/dL (30-55); Mean Corpuscular Hemoglobin 28.3 pg (27-33); Mean Corpuscular Volume 88.7 fl (82-101); Nucleated Red Blood Cells % 0 %; Platelet Count 167 10^3/cmm (157-399); Red Blood Count 5.91 10^6/uL (3.85-5.65); White Blood Count 7.95 10^3/uL (3.29-11.43)
[2025-02-16 14:45] VITALS: BP 130/88
== END 2025-02-26 23:59 | disposition home or self-care (01) ==
PROVIDERS: PCP Nurse Practitioner Family; Visit Provider Internal Medicine Medical Oncology
DX: D75.1 Secondary polycythemia (principal)
CPT/HCPCS: 36415; 85025; 99195

== ENCOUNTER → 2025-03-05 13:49 | Outpatient (BNVA) | payer MEDICARE, OTHER, SELFPAY | PROVIDERS: PCP Nurse Practitioner Family; Visit Provider Nurse Practitioner Family | DX: L81.4 Other melanin hyperpigmentation (principal); L57.8 Other skin changes due to chronic exposure to nonionizing radiation; D22.39 Melanocytic nevi of other parts of face; L82.1 Other seborrheic keratosis; Z08 Encounter for follow-up examination after completed treatment for malignant neoplasm; Z86.006 Personal history of melanoma in-situ; D48.5 Neoplasm of uncertain behavior of skin | CPT/HCPCS: 11102; 17004; 99214 ==

== ENCOUNTER → 2025-03-31 10:04 | Outpatient (BNVA) | payer MEDICARE, OTHER, SELFPAY | PROVIDERS: PCP Nurse Practitioner Family; Visit Provider Dermatology | DX: D04.62 Carcinoma in situ of skin of left upper limb, including shoulder (principal) | CPT/HCPCS: 17262 ==

== ENCOUNTER 2025-04-21 12:50 | Oncology outpatient (recurring) (ONCR) | payer MEDICARE, OTHER, SELFPAY ==
[2025-04-21 13:35] LABS: Hematocrit 48.7 % (37-53); Hemoglobin 16.00 g/dL (11.27-16.99); Mean Corpuscular HGB Conc 32.9 g/dL (30-55); Mean Corpuscular Hemoglobin 28.6 pg (27-33); Mean Corpuscular Volume 87.1 fl (82-101); Nucleated Red Blood Cells % 0 %; Platelet Count 171 10^3/cmm (157-399); Red Blood Count 5.59 10^6/uL (3.85-5.65); White Blood Count 6.39 10^3/uL (3.29-11.43)
== END 2025-04-28 23:59 | disposition home or self-care (01) ==
LOC: ONCMED 12:51
PROVIDERS: PCP Nurse Practitioner Family; Visit Provider Internal Medicine Medical Oncology
DX: D75.1 Secondary polycythemia (principal)
CPT/HCPCS: 85025

== ENCOUNTER → 2025-05-07 15:26 | Outpatient (BNVA) | payer MEDICARE, OTHER, SELFPAY | PROVIDERS: PCP Nurse Practitioner Family; Visit Provider Nurse Practitioner Family | DX: L81.4 Other melanin hyperpigmentation (principal); L57.8 Other skin changes due to chronic exposure to nonionizing radiation; Z86.006 Personal history of melanoma in-situ; Z08 Encounter for follow-up examination after completed treatment for malignant neoplasm; Z86.007 Personal history of in-situ neoplasm of skin; L57.0 Actinic keratosis; D04.39 Carcinoma in situ of skin of other parts of face | CPT/HCPCS: 17004; 17280; 99213 ==

== ENCOUNTER → 2025-05-25 12:49 | Outpatient (BNVA) | payer MEDICARE, OTHER, SELFPAY | PROVIDERS: PCP Nurse Practitioner Family; Visit Provider Dermatology | DX: D04.39 Carcinoma in situ of skin of other parts of face (principal); L57.0 Actinic keratosis; Z86.007 Personal history of in-situ neoplasm of skin; Z08 Encounter for follow-up examination after completed treatment for malignant neoplasm; Z86.006 Personal history of melanoma in-situ | CPT/HCPCS: 99213 ==

== ENCOUNTER 2025-06-22 11:56 | Oncology outpatient (recurring) (ONCR) | payer MEDICARE, OTHER, SELFPAY ==
[2025-06-22 12:19] LABS: Hematocrit 51.4 % (37-53); Hemoglobin 16.50 g/dL (11.27-16.99); Mean Corpuscular HGB Conc 32.1 g/dL (30-55); Mean Corpuscular Hemoglobin 28.2 pg (27-33); Mean Corpuscular Volume 87.7 fl (82-101); Nucleated Red Blood Cells % 0 %; Platelet Count 164 10^3/cmm (157-399); Red Blood Count 5.86 10^6/uL (3.85-5.65); White Blood Count 6.63 10^3/uL (3.29-11.43)
== END 2025-06-28 23:59 | disposition home or self-care (01) ==
LOC: ONCMED 11:56
PROVIDERS: PCP Nurse Practitioner Family; Visit Provider Internal Medicine Medical Oncology
DX: D75.1 Secondary polycythemia (principal)
CPT/HCPCS: 36415; 85025

== ENCOUNTER → 2025-07-27 13:35 | Outpatient (BNVA) | payer MEDICARE, OTHER, SELFPAY | PROVIDERS: PCP Nurse Practitioner Family; Visit Provider Podiatrist Foot & Ankle Surgery | DX: S92.411A Displaced fracture of proximal phalanx of right great toe, initial encounter for closed fracture (principal); X58.XXXA Exposure to other specified factors, initial encounter; G62.9 Polyneuropathy, unspecified; R60.9 Edema, unspecified | CPT/HCPCS: 73630; 99213 ==